=== PATIENT | female | born 1965 | race Caucasian/White ===

== ENCOUNTER 2016-09-17 22:13 | Emergency (ER) | payer OTHER ==
[~2016-09-17] VITALS: Ht 172.7 cm; Wt 81.6 kg
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
--- NOTE | 2016-09-17 22:24 | NUR ---
DR ANN AT BEDSIDE FOR EVAL.
--- NOTE | 2016-09-17 22:41 | NUR ---
IV LINE STARTED BLOOD DRAWN AND SENT TO LAB.
[2016-09-17 22:45] LABS: BASOPHILS % (AUTO) 0.2 % (0.0-2.0); EOSINOPHILS % (AUTO) 0.3 % (0.0-6.0); HEMATOCRIT 33 % (33-45); HEMOGLOBIN 11.2 g/dL (11.5-14.8); LYMPHOCYTES # (AUTO) 1.4 /CMM (0.8-4.8); MEAN CORPUSCULAR HEMOGLOBIN 43 PG (26.0-33.0); MEAN CORPUSCULAR HGB CONC 34 g/dl (31.0-36.0); MEAN CORPUSCULAR VOLUME 129 fL (82-100); MONOCYTES # (AUTO) 0.2 /CMM (0.1-1.30); MONOCYTES % (AUTO) 4.3 % (2.0-12.0); NEUTROPHILS % (AUTO) 70.2 % (43.0-81.0); PLATELET COUNT (AUTO) 214 /CMM (150-450); RDW COEFFICIENT OF VARIATION 16.5 (11.5-15.0); WHITE BLOOD COUNT (AUTO) 5.7 K/uL (4.3-11.0)
[2016-09-17] MEDS ORDERED: INSULIN REGULAR, HUMAN 100 UNIT/ML 10 ML VIAL ONE (22:52)
[2016-09-17] MEDS ORDERED: LORAZEPAM INJ 2 MG/ML VIAL ONE (22:53)
[2016-09-17] MEDS ORDERED: INSULIN REGULAR, HUMAN 100 UNIT/ML 3 ML VIAL IV ONE (23:00)
[2016-09-17] MEDS ORDERED: IV NS 0.9% 1,000 ML BAG IV ONE (23:00)
[2016-09-17] MEDS ORDERED: LORAZEPAM INJ 2 MG/ML VIAL IV ONE (23:00)
[2016-09-17 23:02] LABS: ALANINE AMINOTRANSFERASE 24 U/L (12-78); ALBUMIN 4.4 g/dL (3.4-5.0); ALCOHOL, BLOOD < 3 mg/dL (0-0); ALKALINE PHOSPHATASE 110 U/L (46-116); ASPARTATE AMINOTRANSFERASE 14 U/L (15-37); BILIRUBIN,DIRECT 0.3 mg/dL (0.0-0.2); BILIRUBIN,TOTAL 1.1 mg/dL (0.2-1.0); CARBON DIOXIDE 24 mmol/L (21-32); CHLORIDE 100 mmol/L (98-107); CREATININE 0.6 mg/dL (0.6-1.3); POTASSIUM 3.8 mmol/L (3.5-5.1); SODIUM SERUM 138 mmol/L (136-145); UREA NITROGEN, BLOOD 11 mg/dL (7-18)
[2016-09-17 23:03] LABS: ACETAMINOPHEN 0 ug/ml (10-30); GLUCOSE 403 mg/dL (74-106); SALICYLATE 0.8 mg/dL (2.8-20.0)
--- NOTE | 2016-09-17 23:31 | NUR ---
REPORT TO CHARGE NURSE JOSEPH FOR [facility].
[2016-09-17 23:41] LABS: LYMPHOCYTES % (MANUAL) 22 % (16-48); MONOCYTES % (MANUAL) 4 % (0-11.0); NEUTROPHILS % (MANUAL) 74 (42-76)
[2016-09-18 00:35] LABS: APPEARANCE,URINE CLEAR (CLEAR); BILIRUBIN,URINE NEGATIVE (NEGATIVE); BLOOD, URINE NEGATIVE Ery/uL (NEGATIVE); COLOR,URINE YELLOW (YELLOW); KETONES,URINE 3+ (NEGATIVE); LEUKOCYTE ESTERASE ,URINE NEGATIVE (NEGATIVE); NITRITE, URINE NEGATIVE (NEGATIVE); PH,URINE 5.5 (5.0-8.0); PROTEIN,URINE NEGATIVE (NEGATIVE); UGLUCOSE 3+ mg/dL (NEGATIVE); UROBILINOGEN,URINE 0.2 EU/dL (0.2)
[2016-09-18 00:51] LABS: BACTERIA,URINE None seen /HPF (None Seen); MUCUS,URINE Few /LPF (None Seen); RBC,URINE 0-2 /HPF (0-2); SQUAMOUS EPITHELIAL CELL,UR Few /HPF (None Seen); WBC,URINE 0-2 /HPF (0-3)
--- NOTE | 2016-09-18 01:07 | NUR ---
RECHECKED BLOOD SUGAR AT THIS TIME WITH 158MG/DL, DR ANN WAS NOTIFIED.
--- NOTE | 2016-09-18 05:30 | NUR ---
PT RESTING IN GURNEY. PT CALM AND COOPERATIVE. WILL CONT TO MONITOR PT.
--- NOTE | 2016-09-18 08:21 | NUR ---
UNABLE TO REACH DAUGHTER, PER MESSAGE "UNABLE TO TAKE INCOMING CALLS"
--- NOTE | 2016-09-18 08:59 | NUR ---
BLOOD SUGAR CHECKED, READING 294. MADE AWARE.
--- NOTE | 2016-09-18 09:53 | NUR ---
SPOKE WITH CLAUDETTE, HE'L BE HERE AROUND NOON,12 PM
--- NOTE | 2016-09-18 10:54 | NUR ---
SPOKE WITH SIKHISM WHOM SAID THEY WILL BE ARRIVING AFTER NOON.
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
[2016-09-18 11:03] VITALS: BP 116/76
[2016-09-18] MEDS ORDERED: INSULIN DETEMIR 100 UNIT/ML CARTRIDGE SQ SCH (22:00)
== END 2016-09-18 11:07 | disposition home or self-care (01) ==
LOC: ER 22:15
DX: F43.20 Adjustment disorder, unspecified (principal); E11.65 Type 2 diabetes mellitus with hyperglycemia; I10 Essential (primary) hypertension; Z79.4 Long term (current) use of insulin
CPT/HCPCS: 36415; 80048; 80076; 80305; 80329; 81001; 82962 ×4; 85025; 96361; 96372; 96374; 96375; 99284; A4606; G0480 ×2; J1815 ×4; J2060; J7030 ×2; Z7610; 81000-TC